=== PATIENT | male | born 1985 | race Native Hawaiian/Other Pacific Islander ===

== ENCOUNTER 2019-04-24 14:55 | Outpatient (CLI) | payer BC | END 2019-04-24 20:46 | disposition home or self-care (01) | LOC: RAD 14:55 | DX: M54.9 Dorsalgia, unspecified (principal); M54.10 Radiculopathy, site unspecified; M54.5 Low back pain ==

== ENCOUNTER 2020-07-13 08:06 | Outpatient (CLI) | payer BC, OTHER | END 2020-07-13 21:28 | disposition home or self-care (01) | LOC: LAB 08:06 | PROVIDERS: ATTEND Nurse Practitioner Family | DX: U07.1 COVID-19 (principal); R05 Cough; R09.81 Nasal congestion; Z11.59 Encounter for screening for other viral diseases | CPT/HCPCS: 87635; G2023; U0003 ==